=== PATIENT | female | born 1990 | race African-American/Black ===

== ENCOUNTER 2024-05-26 16:09 | Emergency (ER) | payer BC ==
[~2024-05-26] VITALS: Ht 172.7 cm; Wt 59.0 kg
[2024-05-26 16:20] VITALS: BP 128/77; PULSE 80; RESP 20; TEMP 98.3; O2SAT 99
[2024-05-26] MEDS ORDERED: KETOROLAC 15MG/ML VIAL IV ONE (17:30)
[2024-05-26] MEDS: LACTATED RINGERS 1,000 ML IV SCH (17:33)
== END 2024-05-26 18:11 | disposition left against medical advice (07) ==
LOC: ER 16:09
DX: R10.9 Unspecified abdominal pain (principal); R55 Syncope and collapse; D64.9 Anemia, unspecified; Z88.5 Allergy status to narcotic agent
CPT/HCPCS: 99283; 96360; 93005; J7120